=== PATIENT | female | born 1985 | race Caucasian/White ===

== ENCOUNTER 2022-10-21 05:23 | Day surgery (SDC) | payer OTHER ==
[2022-10-17 14:55] VITALS: BMI 29.2
[2022-10-21] MEDS ORDERED: BUPIVACAINE HCL/PF 0.5% (5MG/ML) 10 ML VIAL ONE (07:37)
[2022-10-21] MEDS ORDERED: BUPIVACAINE HCL/PF 0.5% (5 MG/ML) 30 ML VIAL IJ ONE (08:58)
[2022-10-21] MEDS ORDERED: PROMETHAZINE HCL 25 MG/1 ML VIAL IVPB PRN (09:34)
[2022-10-21] MEDS ORDERED: ONDANSETRON 4 MG/2 ML VIAL IVPUSH PRN (09:34)
[2022-10-21] MEDS ORDERED: ACETAMINOPHEN 1000 MG/100 ML BAG IVPB ONE (09:34)
[2022-10-21] MEDS ORDERED: oxyCODONE HCL 5 MG TABLET PO PRN (09:34)
[2022-10-21] MEDS ORDERED: LACTATED RINGERS SOLUTION 1,000 ML IV SCH (09:45)
[2022-10-21 11:11] VITALS: RESP 18
[2022-10-21 12:56] VITALS: BP 116/69; PULSE 89; TEMP 98
== END 2022-10-21 12:43 | disposition home or self-care (01) ==
LOC: JASU-SURG 05:23
PROVIDERS: ATTEND Obstetrics & Gynecology
PROC: 0UB74ZZ Excision of Bilateral Fallopian Tubes, Percutaneous Endoscopic Approach (ICD-10-PCS; principal; 2022-10-21 08:00)
DX: Z30.2 Encounter for sterilization (principal)
CPT/HCPCS: 88302-TC; 94760